=== PATIENT | male | born 1965 | race Caucasian/White ===

== ENCOUNTER 2018-11-19 08:44 | Inpatient (IN) | payer OTHER ==
[~2018-11-19] VITALS: Ht 175.3 cm; Wt 86.3 kg
[2018-11-19] MEDS ORDERED: SOD CHLORIDE 0.9% 1,000 ML IV STA ×2 (08:55→10:10)
[2018-11-19] MEDS ORDERED: HYDROmorphONE 2 MG/ML SYG IV ONE (09:00)
[2018-11-19] MEDS ORDERED: ONDANSETRON 4 MG INJ IV ONE (09:00)
--- NOTE | 2018-11-19 09:04 | ERD ---
ER Documentation Chief Complaint Chief Complaint fell from a ladder 8ft high.low back pain.hit back of the head.KO x 30 sec HPI This is a 53-year-old male no past medical history that presents to the emergency department brought in by EMS after he fell 10 feet from a ladder. The patient stated he lost his balance and fell backwards onto cement. The patient hit his head and he had a loss of consciousness for roughly 30 seconds. He is complaining of a headache. He denies any neck pain. He is complaining of severe pain in his left hip and back. He states the pain is 10 out of 10 in intensity. He was unable to ambulate after the fall due to the pain in his back. He denies any numbness or tingling of his upper or lower extremities. He is not on anticoagulants. ROS All systems reviewed and are negative except as per history of present illness. Allergies Allergies: Coded Allergies: No Known Allergy (Unverified , 11/19/18) Physical Exam Vitals Vital Signs Date Temp Pulse Resp B/P (MAP) Pulse Ox O2 O2 Flow FiO2 Time Delivery Rate 11/19/18 98.1 78 18 138/101 98 08:52 (113) Physical Exam Constitutional:Well-developed. Well-nourished. HEENT:Normocephalic. Atraumatic with no nasal septal hematoma. No hemotympanum..Pupils were equal round reactive to light. Moist mucous membranes.No tonsillar exudates. Neck: No nuchal rigidity. No lymphadenopathy. Posterior cervical spine tenderness over C3-C4 with no step-offs. Respiratory: Not using accessory muscles of respiration.Lungs were clear to auscultation bilaterally. No rhonchi. No rales. No wheezing. Cardiovascular: Regular rate regular rhythm.No murmurs. No rubs were appreciated.S1, S2 normal. Distal pulses are palpable 2+ bilaterally. GI: Abdomen was soft. Nontender. Non Distended. No pulsatile abdominal masses or bruits. No rebound. No guarding. Bowel sounds were present and normal. No ecchymosis of the abdomen or flank region. Tenderness of the left flank region. Muscle skeletal: Patient unable to lift the left lower extremity against gravity as this exacerbated pain. Lower extremities are of equal length and symmetrical no internal or external rotation. Tenderness over L4-L5 with no step-offs. No tenderness with palpation percussion over the thoracic spinous processes. Normal muscle tone.No assymetrical calf tenderness or swelling. Rectal: No gross blood. Normal sphincter tone. Skin: No petechia, no purpura. No lesions on the palms or the soles of the feet. No maculopapular rash. NEURO: Patient was alert, awake, orientated x3.No facial droop. Gait unobserved as patient was in too much discomfort to ambulate.Speech had regular rate and rhythm. No focal neurological deficits. Distal reflexes including the knee and ankle are intact bilaterally Result Diagram: 11/19/1814 11/19/18913 Results 24 hrs Laboratory Tests Test 11/19/18 09:14 White Blood Count 10.1 10^3/ul Red Blood Count 4.40 10^6/ul Hemoglobin 13.5 g/dl Hematocrit 41.1 % Mean Corpuscular Volume 93.4 fl Mean Corpuscular Hemoglobin 30.7 pg Mean Corpuscular Hemoglobin Concent 32.8 g/dl Red Cell Distribution Width 12.0 % Platelet Count 283 10^3/UL Mean Platelet Volume 10.8 fl Immature Granulocytes % 1.300 % Neutrophils % 70.8 % Lymphocytes % 23.3 % Monocytes % 3.9 % Eosinophils % 0.3 % Basophils % 0.4 % Nucleated Red Blood Cells % 0.0 /100WBC Immature Granulocytes # 0.130 10^3/ul Neutrophils # 7.2 10^3/ul Lymphocytes # 2.4 10^3/ul Monocytes # 0.4 10^3/ul Eosinophils # 0.0 10^3/ul Basophils # 0.0 10^3/ul Nucleated Red Blood Cells # 0.0 10^3/ul Prothrombin Time 11.7 Sec Prothrombin Time Ratio 0.9 INR International Normalized Ratio 0.85 Activated Partial Thromboplast Time 24.7 Sec Urine Color YELLOW Urine Clarity CLEAR Urine pH 5.0 Urine Specific [place] 1.060 Urine Ketones NEGATIVE mg/dL Urine Nitrite NEGATIVE mg/dL Urine Bilirubin NEGATIVE mg/dL Urine Urobilinogen NEGATIVE mg/dL Urine Leukocyte Esterase NEGATIVE Shravan/ul Urine Microscopic RBC 2 /HPF Urine Microscopic WBC 2 /HPF Urine Hemoglobin 2+ mg/dL Urine Glucose NEGATIVE mg/dL Urine Total Protein NEGATIVE mg/dl Sodium Level 144 mmol/L Potassium Level 4.1 mmol/L Chloride Level 110 mmol/L Carbon Dioxide Level 25 mmol/L Anion Gap 9 Blood Urea Nitrogen 18 mg/dl Creatinine 0.98 mg/dl Est Glomerular Filtrat Rate mL/min > 60 mL/min Glucose Level 158 mg/dl Calcium Level 9.8 mg/dl Total Bilirubin 0.4 mg/dl Direct Bilirubin 0.00 mg/dl Indirect Bilirubin 0.4 mg/dl Aspartate Amino Transf (AST/SGOT) 48 IU/L Alanine Aminotransferase (ALT/SGPT) 28 IU/L Alkaline Phosphatase 66 IU/L Creatine Kinase 207 IU/L Creatine Kinase Index 1.0 Creatinine Kinase MB (Mass) 2.14 ng/ml Troponin I < 0.012 ng/ml Total Protein 7.7 g/dl Albumin 4.4 g/dl Globulin 3.30 g/dl Albumin/Globulin Ratio 1.33 Amylase Level 121 U/L Lipase 376 U/L Current Medications Medications Dose Sig/Sabino Start Time Status Last (Trade) Ordered Route PRN Stop Time Admin Dose Reason Admin Sodium 1,000 ml @ Q1H STAT 11/19/18 DC 11/19/18 Chloride 1,000 mls/hr IV 08:55 09:20 11/19/18 09:54 1 mg ONCE ONCE 11/19/18 DC 11/19/18 Hydromorphone IV 09:00 09:05 HCl 11/19/18 09:01 (Dilaudid) Ondansetron 4 mg ONCE ONCE 11/19/18 DC 11/19/18 HCl (Zofran IV 09:00 09:05 Inj) 11/19/18 09:01 IV Flush 10 ml STK-MED 11/19/18 DC 11/19/18 (NS 10 ml) ONCE .ROUTE 09:18 09:53 11/19/18 09:19 Sodium 100 ml @ ud STK-MED 11/19/18 DC 11/19/18 Chloride ONCE .ROUTE 09:18 09:53 11/19/18 09:19 Iodixanol 100 ml STK-MED 11/19/18 DC 11/19/18 (Visipaque ONCE .ROUTE 09:18 09:54 Locm) 11/19/18 09:19 Sodium 1,000 ml @ Q1H STAT 11/19/18 DC 11/19/18 Chloride 1,000 mls/hr IV 10:10 10:43 11/19/18 11:09 1 mg ONCE STAT 11/19/18 DC 11/19/18 Hydromorphone IV 10:10 10:43 HCl 11/19/18 10:11 (Dilaudid) Ondansetron 4 mg ONCE STAT 11/19/18 DC 11/19/18 HCl (Zofran IV 10:10 10:43 Inj) 11/19/18 10:11 10 mg ONCE ONCE 11/19/18 DC 11/19/18 Metoclopramid IV 12:00 12:00 e HCl 11/19/18 12:01 (Reglan) Famotidine 20 mg ONCE ONCE 11/19/18 DC 11/19/18 (Pepcid Iv) IV 12:00 12:00 11/19/18 12:01 Ondansetron 4 mg ER BRIDGE 11/19/18 HCl (Zofran PRN IV 12:00 Inj) NAUSEA/VOMITI 11/20/18 11:59 NG 650 mg ER BRIDGE 11/19/18 Acetaminophen PRN PO 12:00 (Tylenol .MILD PAIN 11/20/18 11:59 Tab) 1-3 OR TEMP IV Flush 3 ml PER 11/19/18 (NS 3 ml) PROTOCOL IV 13:00 Ondansetron 4 mg Q6H PRN 11/19/18 HCl (Zofran IV 13:00 Inj) NAUSEA/VOMITI NG 650 mg Q6H PRN 11/19/18 Acetaminophen PO .PAIN 1-3 13:00 (Tylenol OR TEMP Tab) 1 tab Q6H PRN 11/19/18 Acetaminophen PO .MOD PAIN 13:00 / 4-6 Hydrocodone Bitart ([place] (5/325)) Morphine 2 mg Q4H PRN 11/19/18 Sulfate IV .SEVERE 13:00 (morphine) PAIN 7-10 Docusate 100 mg Q12H PRN 11/19/18 Sodium PO 13:00 (Colace) .CONSTIPATION Magnesium 30 ml DAILY PRN 11/19/18 Hydroxide PO 13:00 (Milk Of Mag) .CONSTIPATION Famotidine 20 mg Q12 IV 11/19/18 (Pepcid Iv) 21:00 Sodium 1,000 ml @ [id number] IV 11/19/18 Chloride 75 mls/hr 12:43 Lorazepam 0.5 mg Q6H PRN 11/19/18 (Ativan) IV ANXIETY 13:00 Albuterol/ 3 ml Q4H RESP 11/19/18 Ipratropium THERAPY PRN 13:00 (Duoneb) HHN SHORTNESS OF BREATH Hydralazine 10 mg Q6H PRN 11/19/18 HCl IV ELEVATED 13:00 (Apresoline) BLOOD PRESSURE 1 tab Q5M PRN 11/19/18 Nitroglycerin SL ANGINA 13:00 (Nitroglyceri n (Sl Tab) 0.4 Mg) Procedures/MDM This is a 53-year-old male that came in as a trauma patient. The patient was immediately placed on monitoring coordinator continuous pulse oximetry and 2 large-bore IV catheters were obtained and the patient was given IV Dilaudid for analgesia control. An immediate bedside fast ultrasound was performed by myself and found to be normal. The patient was placed in C-spine precaution. The patient was logrolled using C-spine immobilization. 12 Lead EKG tracing ordered and reviewed by myself showed: Normal sinus rhythm of 70 bpm and no arrhythmia. NJ interval normal. QRS duration normal. No ST segment elevation No ST segment depression. No changes consistent with acute ischemia. I obtained a chest radiograph and there is no pneumothorax or rib fractures however the patient was now complaining of severe bilateral chest wall tenderness with no crepitus no ecchymosis no flail chest but I did feel is necessary to obtain a CT scan of the patient's chest and abdomen. CT scan of the head and neck showed no intracerebral hemorrhage mass-effect or midline shift. No cervical spinal fractures. CT scan of the abdomen and pelvis indicated there is fractures involving the left-sided transverse process of L1 L4 with mild displacement of these fractures most pronounced at L4. I spoke with the neurosurgeon Dr. Parnell. He kindly see who be consulted on the case. The patient at this time had no neurovascular compromise station. He was given analgesic control of Dilaudid. The patient however was unable to ambulate due to the severity of the pain. Therefore he required admission to the hospital will be seen by the hospitalist Dr. Shen. Critical Care: Time: 90 minutes Treatments/Evaluations: Close monitoring and treatment of unstable vital signs, cardiorespiratory, and neurologic status, while maintaining tight balance of fluid, respiratory, and cardiac interventions. Time does not include performing any of the above billable procedures. Departure Diagnosis: Primary Impression: Fall with significant injury Encounter type: initial encounter Qualified Codes: W19.XXXA - Unspecified fall, initial encounter Additional Impressions: Closed head injury Encounter type: initial encounter Qualified Codes: S09.90XA - Unspecified injury of head, initial encounter Fx lumbar vertebra-closed Encounter type: initial encounter Lumbar vertebra fracture level: unspecified lumbar vertebra Fracture morphology: unspecified fracture m orphology Qualified Codes: S32.009A - Unspecified fracture of unspecified lumbar vertebra, initial encounter for closed fracture Condition: Serious BENTLEY MERCADO MD Nov 19, 2018 09:04
[2018-11-19] MEDS ORDERED: IODIXANOL LOCM 100 ML BTL ONE (09:18)
[2018-11-19] MEDS ORDERED: SOD CHLORIDE 0.9% 100 ML ONE (09:18)
[2018-11-19] MEDS ORDERED: ONDANSETRON 4 MG INJ IV STA (10:10)
[2018-11-19] MEDS ORDERED: HYDROmorphONE 1 MG/ML SYG IV STA (10:10)
[2018-11-19] MEDS ORDERED: FAMOTIDINE 20 MG INJ IV ONE (12:00)
[2018-11-19] MEDS ORDERED: METOCLOPRAMIDE 10 MG INJ IV ONE (12:00)
[2018-11-19] MEDS ORDERED: ONDANSETRON 4 MG INJ IV PRN (12:00)
[2018-11-19] MEDS ORDERED: ACETAMINOPHEN 325 MG TAB PO PRN ×2 (12:00→13:00)
[2018-11-19] MEDS ORDERED: MAGNESIUM HYDROXIDE 30ML CUP PO PRN (13:00)
[2018-11-19] MEDS ORDERED: hydrALAzine 20 MG INJ IV PRN (13:00)
[2018-11-19] MEDS ORDERED: LORAZEPAM 2 MG INJ IV PRN (13:00)
[2018-11-19] MEDS ORDERED: NACL 0.9% 3 ML SYG IV SCH (13:00)
[2018-11-19] MEDS ORDERED: DOCUSATE SODIUM 100 MG CAP PO PRN (13:00)
[2018-11-19] MEDS ORDERED: HYDROCODONE/APAP (5/325) TAB PO PRN (13:00)
[2018-11-19] MEDS ORDERED: morphine 2 MG INJ IV PRN (13:00)
[2018-11-19] MEDS ORDERED: ALBUTEROL/IPRATROPIUM (NEB) 3 ML AMP HHN PRN (13:00)
[2018-11-19] MEDS ORDERED: NITROGLYCERIN (SL) 0.4 MG TAB SL PRN (13:00)
[2018-11-19] MEDS: SOD CHLORIDE 0.45% 1,000 ML IV SCH (15:43)
--- NOTE | 2018-11-19 16:42 | HP ---
DATE OF ADMISSION: 11/19/2018 IDENTIFICATION: This is a 53-year-old male. CHIEF COMPLAINT: Status post fall, low back pain. HISTORY OF PRESENT ILLNESS: A 53-year-old male with no significant past medical history who came in to the ER after falling off a ladder. This occurred earlier today. He fell approximately 10 feet. The patient hit his head as well. Apparently, he was out for about 1 minute. Afterwards, he was com plaining of headache and left armpit pain and some dizziness symptoms and also some low back pain. H e was able to move his extremities, but unstable to ambulate and 911 was called. He was brought into the ER. He still complains of dizziness symptoms, but no upper or lower GI bleeding, no diarrhea or constipation, no nausea or vomiting, no fever or chills. When he arrived, he had imaging study perf ormed, specifically CT scan that showed fractures involving left-sided transverse process of L1 L4 rosenbaum bcutaneous contusion seen superficial to the area of injury and mild left paraspinal muscular edema. No other visible and posttraumatic sequela was seen involving the osseous structures. A call was randy wheeler out to the neurosurgeon to come evaluate the patient. The patient also denies any loss of bowel o r bladder function, no numbness in his lower extremities. He does have limited range of motion secon alexis to pain in his lower extremities. He also had C-spine CT scan that shows no acute fractures or traumatic subluxations, but there is multilevel broad based bulges at C2 to C3 through C6 and C7, als o multilevel neural foraminal stenosis at C3 to C4 and C5 to C6 levels. PAST MEDICAL HISTORY: As above. ALLERGIES: NO KNOWN DRUG ALLERGIES. HOME MEDICATIONS: None. PAST SURGICAL HISTORY: He had hernia surgery in the past. SOCIAL HISTORY: Occasional alcohol use. Denied IV drug abuse. No smoking history. PHYSICAL EXAMINATION: VITAL SIGNS: Today, T-max 98.1, pulse 78, respirations 19, blood pressure 138/101, satting at 98% on room air. GENERAL: The patient is lying in bed in mild to moderate distress but answering questions appropriat leland, alert. HEENT: Pupils are equal, round, react to light. Extraocular muscles are intact. NECK: Supple. Some positive C-spine tenderness on palpation. LUNGS: Clear to auscultation bilaterally. CARDIOVASCULAR: S1, S2 heard. No rubs or gallops. ABDOMEN: Soft, nontender, nondistended. Normal bowel sounds. No rebound or guarding. There is lion e mild left flank tenderness to palpation. MUSCULOSKELETAL: Unable to do left lower extremity bilaterally against gravity secondary to pain. T here is some tenderness to palpation in the spine area; otherwise no asymmetry or numbness noted. NEUROLOGIC: No focal deficits. LABORATORIES: CBC is completely normal. Comprehensive metabolic panel is normal, although CK levels are little high at 207. Lipase is a little high at 376. UA is negative leukocyte esterase, negativ e nitrites. Coags are normal. DIAGNOSTIC DATA: We mentioned imaging studies. ASSESSMENT AND PLAN: A 53-year-old male status post fall off ladder with L1 to L4 transverse process fractures. 1. Status post fall with L-spine fracture. Admit the patient. Do neuro checks every 4 hours. Get a neurosurgery consult. Order PT. Give pain control medications. OT consult. Check TSH, A1c, lipi d panel. 2. Gastrointestinal prophylaxis, H2 gardenia. 3. Deep venous thrombosis prophylaxis, SCDs. Dictated By: ZACHARY TIPTON/JUAN MANUEL Conf#: [id number] DID#: [id number] CC: WINNIE WILKES MD;*EndCC*
[2018-11-19 16:59] VITALS: PULSE 93; Ht 175.3 cm; Wt 86.3 kg
[2018-11-19 19:57] VITALS: BP 167/83; PULSE 100; RESP 18
[2018-11-19 20:04] VITALS: PULSE 67
[2018-11-20] VITALS (12 sets, daily range): BP systolic 93–145; BP diastolic 57–80; PULSE 60–89; RESP 18
--- NOTE | 2018-11-20 00:37 | CONS ---
DATE OF ADMISSION: 11/19/2018 DATE OF CONSULTATION: 11/19/2018 REQUESTING PHYSICIAN: Dr. Bentley Mercado. INDICATION FOR CONSULTATION: Transverse process fractures. HISTORY OF PRESENT ILLNESS: The patient is a 53-year-old right-handed male who was brought to the Em ergency Department after a 10-foot fall from a ladder. The patient fell, hit his head and lost consc iousness for approximately 30 seconds. The patient apparently simply lost his balance and slipped, f alling backwards landing on his left side on the cement. The patient initially complained of headach e and still complains of headache in the back of his head. He denies any nausea, vomiting, numbness, tingling or weakness. He reports some left-sided chest wall pain as well as some left-sided low rafael k and hip pain. The patient's pain was initially 10/10, but currently patient states his pain is muc h less severe. PAST MEDICAL HISTORY: The patient denies any medical problems. ALLERGIES: NO KNOWN DRUG ALLERGIES. SURGICAL HISTORY: The patient reports he has had some surgeries, but would not specify the actual pr ocedures. FAMILY HISTORY: The patient denies any history of inherited bleeding disorders. SOCIAL HISTORY: The patient is . The patient is an occasional drinker, nonsmoker, denies any IV drug abuse. REVIEW OF SYSTEMS: A 12-point review of systems was performed. Pertinent positives and negatives ar e listed in the history of present illness and below. CONSTITUTIONAL: Denies any fevers or chills. HEMATOLOGIC: No history of easy bruising or bleeding. PHYSICAL EXAMINATION: VITAL SIGNS: Temperature 98.1, pulse 93, respirations 16, blood pressure 119/75, saturating 99% on r oom air. GENERAL: The patient is well-developed, well-nourished male, lying in the hospital bed in no acute d istress. HEAD AND NECK: He is normocephalic. He has a cephalohematoma on his left occiput. He has no Riggs sign, periorbital ecchymosis, otorrhea or rhinorrhea. The patient's neck is supple, but he reports some mid cervical paraspinal tenderness. No midline tenderness to palpation. He does have Spurling nor Lhermitte sign. CARDIAC: Regular rate and rhythm. LUNGS: Clear to auscultation. ABDOMEN: Nontender, nondistended, soft. EXTREMITIES: No clubbing, cyanosis or edema. CHEST AND BACK: The patient does report some left chest wall tenderness as well as some tenderness i n his lower back paraspinal muscles. MUSCULOSKELETAL: He has normal tone and bulk. His motor exam is 5/5 bilaterally in all muscle group s of the upper and lower extremities. NEUROLOGIC: The patient is awake, alert and oriented x3, fluent speech, follows commands readily tyron ropriately. He has normal attention and concentration. He has intact remote, immediate and recent m chiara. Cranial nerves II through XII are serially tested and intact. He does not have a pronator dr ift. He has no ataxia or dysmetria with [id number] or [id number] testing. Gait not assess ed secondary to condition. Deep tendon reflexes are 1+ in his upper and lower extremities at biceps, triceps, ankle and patella. He has no clonus, Babinski or Keysha sign. Grossly intact sensation. LABORATORIES: The patient's white count 10.1, hemoglobin 14.5, platelets 283. Coagulation profile w as normal with a PT of 1, INR of 0.93, and a PTT of 25.3. Chemistry is sodium 144, BUN and creatinin e 18 and 0.98, with a glucose 158. REVIEW OF RADIOGRAPHIC RESULTS: I reviewed the patient's CT of the head, which was normal, with no e vidence of acute bleed or fracture. CT of cervical spine showed no evidence of fracture or subluxati on. There is some mild degenerative disk disease and some straightening of her cervical lordosis wit h some neural foraminal stenosis, but no significant central canal stenosis. The patient had a CT of the chest, abdomen and pelvis. I reviewed this study as well as radiologist's results. There is so me left transverse process of fractures that are minimally displaced from L1 through L4. The patient also had an MRI which showed no evidence of ligamentous injury, acute disk bulge, epidural hematoma or edema in the bone. The fractures were not visible on the MRI. ASSESSMENT: A 53-year-old male status post fall with: 1. Multiple transverse process fractures. 2. Concussion. PLAN: I discussed patient's signs, symptoms, physical examination and radiographic findings with him and his family. Firstly, I explained the patient's TP fractures are not surgical. I explained that they may be painful, but the pain will resolve. I did not see evidence of instability. The patient does not have any neurologic issues associated with this. I simply recommend a brace or corset for comfort and muscle relaxants and pain medications, specifically anti-inflammatories to help for pain relief. However, I do not think that this will progress to require any type of instability or requir e any type of surgical intervention. The patient also had a concussion. I discussed postconcussive symptoms. The patient does have some dizziness when he turns his head or sits up. I explained this is likely secondary to his postconcussive symptoms. I discussed the natural history of this ____ of postconcussive symptoms, and recommended behavior to help allow for recovery. The patient otherwise is free to get up and ambulate with physical therapy and the patient can follow up as an outpatient. Dictated By: WINNIE WILKES MD, LG/JUAN MANUEL Conf#: [id number] DID#: [id number] CC: BENTLEY MERCADO MD; JACKLYN CAMARA MD;*End*
[2018-11-20] MEDS: SOD CHLORIDE 0.45% 1,000 ML IV SCH ×2 (03:53→15:31)
[2018-11-20] MEDS: FAMOTIDINE 20 MG INJ IV SCH ×2 (03:53→08:01)
--- NOTE | 2018-11-20 08:13 | PN ---
Date/Time of Note Date/Time of Note DATE: 11/20/18 TIME: 08:12 Assessment/Plan VTE Prophylaxis Risk score (from Ns)>0 risk: 2 SCD applied (from Ns): Yes Pharmacological prophylaxis: other Lines/Catheters IV Catheter Type (from Nrsg): Peripheral IV Assessment/Plan Hospital Course S: Patient seen by neurosurgery team yesterday. Waiting to be seen by physical therapy team. Still having pain symptoms that is relieved by morphine. O: VS- see below PHYSICAL EXAMINATION: GENERAL: lying in bed in mild to moderate distress but answering questions appropriately, alert. HEENT: Pupils are equal, round, react to light. Extraocular muscles are intact. NECK: Supple. Some positive C-spine tenderness on palpation. LUNGS: Clear to auscultation bilaterally. CARDIOVASCULAR: S1, S2 heard. No rubs or gallops. ABDOMEN: Soft, nontender, nondistended. Normal bowel sounds. No rebound or guarding. There is some mild left flank tenderness to palpation. MUSCULOSKELETAL: Unable to do left lower extremity bilaterally against gravity secondary to pain. There is some tenderness to palpation in the spine area; otherwise no asymmetry or numbness noted. NEUROLOGIC: No focal deficits. ASSESSMENT AND PLAN: 53-year-old male status post fall off ladder with L1 to L4 transverse process fractures. 1. Status post fall with L-spine fracture- pt see by NSS. - continue neuro checks every 4 hours. - f/u rec's from neurosurgery consult-at this time they are recommending brace placement, ambulation with physical therapy, and muscle relaxant - Per neurosurgery patient will also need brace -hopefully physical therapy can order this -For patient's concussion symptoms, monitor for now, careful physical therapy, monitors dizziness symptom 2. Gastrointestinal prophylaxis, H2 gardenia. 3. Deep venous thrombosis prophylaxis, SCDs. Result Diagram: 11/20/18 0513 11/20/18 0513 Results 24hrs Laboratory Tests Test 11/19/18 09:14 11/19/18 12:43 11/19/18 18:13 11/20/18 05:10 White Blood Count 10.1 Red Blood Count 4.40 L Hemoglobin 13.5 L Hematocrit 41.1 L Mean Corpuscular 93.4 Volume Mean Corpuscular 30.7 Hemoglobin Mean Corpuscular 32.8 Hemoglobin Concent Red Cell 12.0 Distribution Width Platelet Count 283 Mean Platelet Volume 10.8 H Immature 1.300 H Granulocytes % Neutrophils % 70.8 Lymphocytes % 23.3 Monocytes % 3.9 Eosinophils % 0.3 Basophils % 0.4 Nucleated Red Blood 0.0 Cells % Immature 0.130 H Granulocytes # Neutrophils # 7.2 Lymphocytes # 2.4 Monocytes # 0.4 Eosinophils # 0.0 Basophils # 0.0 Nucleated Red Blood 0.0 Cells # Prothrombin Time 11.7 L 12.6 Prothrombin Time 0.9 1.0 Ratio INR International 0.85 0.93 Normalized Ratio Activated 24.7 25.3 Partial Thromboplast Time Urine Color YELLOW Urine Clarity CLEAR Urine pH 5.0 Urine Specific 1.060 H [place] Urine Ketones NEGATIVE Urine Nitrite NEGATIVE Urine Bilirubin NEGATIVE Urine Urobilinogen NEGATIVE Urine Leukocyte NEGATIVE Esterase Urine Microscopic 2 RBC Urine Microscopic 2 WBC Urine Hemoglobin 2+ H Urine Glucose NEGATIVE Urine Total Protein NEGATIVE Sodium Level 144 Potassium Level 4.1 Chloride Level 110 Carbon Dioxide Level 25 Anion Gap 9 Blood Urea Nitrogen 18 Creatinine 0.98 Est Glomerular > 60 Filtrat Rate mL/min Glucose Level 158 Calcium Level 9.8 Total Bilirubin 0.4 Direct Bilirubin 0.00 Indirect Bilirubin 0.4 Aspartate Amino 48 H Transf (AST/SGOT) Alanine 28 Aminotransferase (AL T/SGPT) Alkaline Phosphatase 66 Creatine Kinase 207 H Creatine Kinase 1.0 Index Creatinine Kinase MB 2.14 (Mass) Troponin I < 0.012 Total Protein 7.7 Albumin 4.4 Globulin 3.30 H Albumin/Globulin 1.33 Ratio Amylase Level 121 Lipase 376 H Free Thyroxine 1.08 Hemoglobin A1c 5.6 Test 11/20/18 05:13 White Blood Count 8.8 Red Blood Count 3.83 L Hemoglobin 11.6 L Hematocrit 35.5 L Mean Corpuscular 92.7 Volume Mean Corpuscular 30.3 Hemoglobin Mean Corpuscular 32.7 Hemoglobin Concent Red Cell 12.2 Distribution Width Platelet Count 225 # Mean Platelet Volume 10.6 H Immature 0.300 Granulocytes % Neutrophils % 71.3 Lymphocytes % 19.4 Monocytes % 8.4 Eosinophils % 0.3 Basophils % 0.3 Nucleated Red Blood 0.0 Cells % Immature 0.030 Granulocytes # Neutrophils # 6.3 Lymphocytes # 1.7 Monocytes # 0.7 Eosinophils # 0.0 Basophils # 0.0 Nucleated Red Blood 0.0 Cells # Sodium Level 140 Potassium Level 3.8 Chloride Level 108 Carbon Dioxide Level 26 Anion Gap 6 Blood Urea Nitrogen 11 Creatinine 0.78 Est Glomerular > 60 Filtrat Rate mL/min Glucose Level 107 # Calcium Level 8.6 Phosphorus Level 3.4 Magnesium Level 2.0 Triglycerides Level 70 Cholesterol Level 152 LDL Cholesterol, 94 Calculated HDL Cholesterol 44 Cholesterol/HDL 3.4 Ratio Thyroid Stimulating 0.465 Hormone (TSH) Exam/Review of Systems Exam Vitals Vital Signs Date Temp Pulse Resp B/P (MAP) Pulse Ox O2 O2 Flow FiO2 Time Delivery Rate 11/20/18 60 08:06 11/20/18 97.5 18 107/68 98 Room Air 07:28 (81) Intake and Output 11/19/18 11/19/18 11/20/18 1515:00 23:00 07:00 IntakeIntake Total 0 ml 2000 ml OutputOutput Total 1100 ml BalanceBalance 0 ml 900 ml Results Results 24hrs Laboratory Tests Test 11/19/18 09:14 11/19/18 12:43 11/19/18 18:13 11/20/18 05:10 White Blood Count 10.1 Red Blood Count 4.40 L Hemoglobin 13.5 L Hematocrit 41.1 L Mean Corpuscular 93.4 Volume Mean Corpuscular 30.7 Hemoglobin Mean Corpuscular 32.8 Hemoglobin Concent Red Cell 12.0 Distribution Width Platelet Count 283 Mean Platelet Volume 10.8 H Immature 1.300 H Granulocytes % Neutrophils % 70.8 Lymphocytes % 23.3 Monocytes % 3.9 Eosinophils % 0.3 Basophils % 0.4 Nucleated Red Blood 0.0 Cells % Immature 0.130 H Granulocytes # Neutrophils # 7.2 Lymphocytes # 2.4 Monocytes # 0.4 Eosinophils # 0.0 Basophils # 0.0 Nucleated Red Blood 0.0 Cells # Prothrombin Time 11.7 L 12.6 Prothrombin Time 0.9 1.0 Ratio INR International 0.85 0.93 Normalized Ratio Activated 24.7 25.3 Partial Thromboplast Time Urine Color YELLOW Urine Clarity CLEAR Urine pH 5.0 Urine Specific 1.060 H [place] Urine Ketones NEGATIVE Urine Nitrite NEGATIVE Urine Bilirubin NEGATIVE Urine Urobilinogen NEGATIVE Urine Leukocyte NEGATIVE Esterase Urine Microscopic 2 RBC Urine Microscopic 2 WBC Urine Hemoglobin 2+ H Urine Glucose NEGATIVE Urine Total Protein NEGATIVE Sodium Level 144 Potassium Level 4.1 Chloride Level 110 Carbon Dioxide Level 25 Anion Gap 9 Blood Urea Nitrogen 18 Creatinine 0.98 Est Glomerular > 60 Filtrat Rate mL/min Glucose Level 158 Calcium Level 9.8 Total Bilirubin 0.4 Direct Bilirubin 0.00 Indirect Bilirubin 0.4 Aspartate Amino 48 H Transf (AST/SGOT) Alanine 28 Aminotransferase (AL T/SGPT) Alkaline Phosphatase 66 Creatine Kinase 207 H Creatine Kinase 1.0 Index Creatinine Kinase MB 2.14 (Mass) Troponin I < 0.012 Total Protein 7.7 Albumin 4.4 Globulin 3.30 H Albumin/Globulin 1.33 Ratio Amylase Level 121 Lipase 376 H Free Thyroxine 1.08 Hemoglobin A1c 5.6 Test 11/20/18 05:13 White Blood Count 8.8 Red Blood Count 3.83 L Hemoglobin 11.6 L Hematocrit 35.5 L Mean Corpuscular 92.7 Volume Mean Corpuscular 30.3 Hemoglobin Mean Corpuscular 32.7 Hemoglobin Concent Red Cell 12.2 Distribution Width Platelet Count 225 # Mean Platelet Volume 10.6 H Immature 0.300 Granulocytes % Neutrophils % 71.3 Lymphocytes % 19.4 Monocytes % 8.4 Eosinophils % 0.3 Basophils % 0.3 Nucleated Red Blood 0.0 Cells % Immature 0.030 Granulocytes # Neutrophils # 6.3 Lymphocytes # 1.7 Monocytes # 0.7 Eosinophils # 0.0 Basophils # 0.0 Nucleated Red Blood 0.0 Cells # Sodium Level 140 Potassium Level 3.8 Chloride Level 108 Carbon Dioxide Level 26 Anion Gap 6 Blood Urea Nitrogen 11 Creatinine 0.78 Est Glomerular > 60 Filtrat Rate mL/min Glucose Level 107 # Calcium Level 8.6 Phosphorus Level 3.4 Magnesium Level 2.0 Triglycerides Level 70 Cholesterol Level 152 LDL Cholesterol, 94 Calculated HDL Cholesterol 44 Cholesterol/HDL 3.4 Ratio Thyroid Stimulating 0.465 Hormone (TSH) Medications Medication Current Medications Ondansetron HCl (Zofran Inj) 4 mg ER BRIDGE PRN IV NAUSEA/VOMITING; Start 11/19/18 at 12:00; Stop 11/20/18 at 11:59 Acetaminophen (Tylenol Tab) 650 mg ER BRIDGE PRN PO .MILD PAIN 1-3 OR TEMP; Start 11/19/18 at 12:00; Stop 11/20/18 at 11:59 IV Flush (NS 3 ml) 3 ml PER PROTOCOL IV ; Start 11/19/18 at 13:00 Ondansetron HCl (Zofran Inj) 4 mg Q6H PRN IV NAUSEA/VOMITING; Start 11/19/18 at 13:00 Acetaminophen (Tylenol Tab) 650 mg Q6H PRN PO .PAIN 1-3 OR TEMP; Start 11/19/18 at 13:00 Acetaminophen/ Hydrocodone Bitart ([place] (5/325)) 1 tab Q6H PRN PO .MOD PAIN 4- 6; Start 11/19/18 at 13:00 Morphine Sulfate (morphine) 2 mg Q4H PRN IV .SEVERE PAIN 7-10 Last administered on 11/19/18at 18:29; Admin Dose 2 MG; Start 11/19/18 at 13:00 Docusate Sodium (Colace) 100 mg Q12H PRN PO .CONSTIPATION; Start 11/19/18 at 13:00 Magnesium Hydroxide (Milk Of Mag) 30 ml DAILY PRN PO .CONSTIPATION; Start 11/19/18 at 13:00 Famotidine (Pepcid Iv) 20 mg Q12 IV Last administered on 11/20/18at 08:01; Admin Dose 20 MG; Start 11/19/18 at 21:00 Sodium Chloride 1,000 ml @ 75 mls/hr [id number] IV Last administered on 11/20/18at 03:53; Admin Dose 75 MLS/HR; Start 11/19/18 at 12:43 Lorazepam (Ativan) 0.5 mg Q6H PRN IV ANXIETY; Start 11/19/18 at 13:00 Albuterol/ Ipratropium (Duoneb) 3 ml Q4H RESP THERAPY PRN HHN SHORTNESS OF BR EATH; Start 11/19/18 at 13:00 Hydralazine HCl (Apresoline) 10 mg Q6H PRN IV ELEVATED BLOOD PRESSURE; Start 11/19/18 at 13:00 Nitroglycerin (Nitroglycerin (Sl Tab) 0.4 Mg) 1 tab Q5M PRN SL ANGINA; Start 11/19/18 at 13:00 ZACHARY MILLARD Nov 20, 2018 08:13
[2018-11-20] MEDS ORDERED: HYDROmorphONE 2 MG TAB PO PRN (10:00)
[2018-11-20] MEDS: BACLOFEN 10 MG TAB PO SCH ×3 (11:10→21:18)
[2018-11-20] MEDS ORDERED: HYDROCODONE/APAP (5/325) TAB PO PRN (13:00)
[2018-11-20] MEDS: ONDANSETRON 4 MG INJ IV PRN (20:33)
[2018-11-20] MEDS: FAMOTIDINE 20 MG TAB PO SCH (21:18)
[2018-11-21] VITALS (10 sets, daily range): BP systolic 90–116; BP diastolic 51–73; PULSE 58–69; RESP 17–18
[2018-11-21] MEDS: SOD CHLORIDE 0.45% 1,000 ML IV SCH ×2 (04:43→17:33)
[2018-11-21] MEDS: ONDANSETRON 4 MG INJ IV PRN (08:21)
[2018-11-21] MEDS: FAMOTIDINE 20 MG TAB PO SCH (09:12)
[2018-11-21] MEDS: BACLOFEN 10 MG TAB PO SCH ×2 (09:12→13:14)
--- NOTE | 2018-11-21 11:44 | PN ---
Date/Time of Note Date/Time of Note DATE: 11/21/18 TIME: 11:26 Assessment/Plan VTE Prophylaxis Risk score (from Nsg)>0 risk: 2 SCD applied (from Nsg): Yes Pharmacological prophylaxis: other Lines/Catheters IV Catheter Type (from Nrsg): Peripheral IV Assessment/Plan Hospital Course S: Patient seen by PT, OT, and speech teams yesterday. O: VS- see below PHYSICAL EXAMINATION: GENERAL: lying in bed in mild to moderate distress but answering questions appropriately, alert. HEENT: Pupils are equal, round, react to light. Extraocular muscles are intact. NECK: Supple. Some positive C-spine tenderness on palpation. LUNGS: Clear to auscultation bilaterally. CARDIOVASCULAR: S1, S2 heard. No rubs or gallops. ABDOMEN: Soft, nontender, nondistended. Normal bowel sounds. No rebound or guarding. There is some mild left flank tenderness to palpation. MUSCULOSKELETAL: Unable to do left lower extremity bilaterally against gravity secondary to pain. There is some tenderness to palpation in the spine area; otherwise no asymmetry or numbness noted. NEUROLOGIC: No focal deficits. ASSESSMENT AND PLAN: 53-year-old male status post fall off ladder with L1 to L4 transverse process fractures. 1. Status post fall with L-spine fracture- pt see by NSS. - f/u rec's from neurosurgery consult-at this time they are recommending brace or corset placement, ambulation with physical therapy, and muscle relaxant -we will have this arranged -Continue PT and OT while in-house - For patient's concussion symptoms, monitor for now, careful physical therapy, monitors dizziness symptom 2. Gastrointestinal prophylaxis, H2 gardenia. 3. Deep venous thrombosis prophylaxis, SCDs. Dispo: Likely home in the next 24 hours once patient gets front wheel walker, corset, and brace set up and ordered for home use. Result Diagram: 11/21/1826 11/21/1826 Results 24hrs Laboratory Tests Test 11/21/18 05:26 White Blood Count 7.0 # Red Blood Count 3.83 L Hemoglobin 11.8 L Hematocrit 35.8 L Mean Corpuscular Volume 93.5 Mean Corpuscular Hemoglobin 30.8 Mean Corpuscular Hemoglobin Concent 33.0 Red Cell Distribution Width 12.0 Platelet Count 237 Mean Platelet Volume 11.0 H Immature Granulocytes % 0.300 Neutrophils % 65.6 Lymphocytes % 26.0 Monocytes % 7.1 Eosinophils % 0.7 Basophils % 0.3 Nucleated Red Blood Cells % 0.0 Immature Granulocytes # 0.020 Neutrophils # 4.6 Lymphocytes # 1.8 Monocytes # 0.5 Eosinophils # 0.1 Basophils # 0.0 Nucleated Red Blood Cells # 0.0 Sodium Level 141 Potassium Level 3.7 Chloride Level 107 Carbon Dioxide Level 25 Anion Gap 9 Blood Urea Nitrogen 10 Creatinine 0.80 Est Glomerular Filtrat Rate mL/min > 60 Glucose Level 99 Calcium Level 9.0 Exam/Review of Systems Exam Vitals Vital Signs Date Temp Pulse Resp B/P (MAP) Pulse Ox O2 O2 Flow FiO2 Time Delivery Rate 11/21/18 61 08:16 11/21/18 97.6 17 116/72 96 Room Air 07:57 (87) Intake and Output 11/20/18 11/20/18 11/21/18 1515:00 23:00 07:00 IntakeIntake Total 250 ml 1000 ml 2250 ml OutputOutput Total 300 ml 1000 ml 300 ml BalanceBalance -50 ml 0 ml 1950 ml Results Results 24hrs Laboratory Tests Test 11/21/18 05:26 White Blood Count 7.0 # Red Blood Count 3.83 L Hemoglobin 11.8 L Hematocrit 35.8 L Mean Corpuscular Volume 93.5 Mean Corpuscular Hemoglobin 30.8 Mean Corpuscular Hemoglobin Concent 33.0 Red Cell Distribution Width 12.0 Platelet Count 237 Mean Platelet Volume 11.0 H Immature Granulocytes % 0.300 Neutrophils % 65.6 Lymphocytes % 26.0 Monocytes % 7.1 Eosinophils % 0.7 Basophils % 0.3 Nucleated Red Blood Cells % 0.0 Immature Granulocytes # 0.020 Neutrophils # 4.6 Lymphocytes # 1.8 Monocytes # 0.5 Eosinophils # 0.1 Basophils # 0.0 Nucleated Red Blood Cells # 0.0 Sodium Level 141 Potassium Level 3.7 Chloride Level 107 Carbon Dioxide Level 25 Anion Gap 9 Blood Urea Nitrogen 10 Creatinine 0.80 Est Glomerular Filtrat Rate mL/min > 60 Glucose Level 99 Calcium Level 9.0 Medications Medication Current Medications IV Flush (NS 3 ml) 3 ml PER PROTOCOL IV ; Start 11/19/18 at 13:00 Ondansetron HCl (Zofran Inj) 4 mg Q6H PRN IV NAUSEA/VOMITING Last administered on 11/21/18 08:21; Admin Dose 4 MG; Start 11/19/18 at 13:00 Acetaminophen (Tylenol Tab) 650 mg Q6H PRN PO .PAIN 1-3 OR TEMP; Start 11/19/18 at 13:00 Morphine Sulfate (morphine) 2 mg Q4H PRN IV .SEVERE PAIN 7-10 Last administered on 11/19/18 18:29; Admin Dose 2 MG; Start 11/19/18 at 13:00 Docusate Sodium (Colace) 100 mg Q12H PRN PO .CONSTIPATION; Start 11/19/18 at 13:00 Magnesium Hydroxide (Milk Of Mag) 30 ml DAILY PRN PO .CONSTIPATION; Start 11/19/18 at 13:00 Sodium Chloride 1,000 ml @ 75 mls/hr [id number] IV Last administered on 11/21/18 04:43; Admin Dose 75 MLS/HR; Start 11/19/18 at 12:43 Lorazepam (Ativan) 0.5 mg Q6H PRN IV ANXIETY; Start 11/19/18 at 13:00 Albuterol/ Ipratropium (Duoneb) 3 ml Q4H RESP THERAPY PRN HHN SHORTNESS OF BREATH; Start 11/19/18 at 13:00 Hydralazine HCl (Apresoline) 10 mg Q6H PRN IV ELEVATED BLOOD PRESSURE; Start 11/19/18 at 13:00 Nitroglycerin (Nitroglycerin (Sl Tab) 0.4 Mg) 1 tab Q5M PRN SL ANGINA; Start 11/19/18 at 13:00 Baclofen (Lioresal) 10 mg TID PO Last administered on 11/21/18 09:12; Admin Dose 10 MG; Start 11/20/18 at 10:00 Acetaminophen/ Hydrocodone Bitart ([place] (5/325)) 1 tab Q4H PRN PO .MOD PAIN 4- 6 Last administered on 11/20/18 21:18; Admin Dose 1 TAB; Start 11/20/18 at 13:00 Hydromorphone HCl (Dilaudid) 2 mg Q4H PRN PO SEVERE PAIN LEVEL 7-10; Start 11/20/18 at 10:00 Famotidine (Pepcid) 20 mg Q12 PO Last administered on 11/21/18 09:12; Admin Dose 20 MG; Start 11/20/18 at 21:00 ZACHARY MILLARD Nov 21, 2018 11:36
--- NOTE | 2018-11-21 17:45 | PDOCDIS ---
Discharge Instructions CONDITION [id number] Patient Condition: [id number] Stable HOME CARE INSTRUCTIONS: [id number] Diet Instructions: [id number] Low Fat /Cholesterol ACTIVITY: [id number] Activity Restrictions: [id number] Slowly Increase Activity Rest between Activity Avoid heavy lifting FOLLOW UP/APPOINTMENTS Follow-up Plan Please take your medications as prescribed, see her doctor in the clinic in the next 1 week and wear your brace as prescribed. ZACHARY MILLARD Nov 21, 2018 17:45
[2018-11-21] MEDS ORDERED: BACL10TA PO (17:48)
[2018-11-21] MEDS ORDERED: HYDR2TAB36 PO (17:48)
[2018-11-21] MEDS ORDERED: ONDA4TAB8 PO (17:48)
[2018-11-21] MEDS ORDERED: FAMO20TA18 PO (17:48)
--- NOTE | 2018-11-21 17:58 | DS ---
Date/Time of Note Date/Time of Note DATE: 11/21/18 TIME: 17:54 Discharge Summary Admission/Discharge Info Admit Date/Time Nov 19, 2018 at 11:46 Discharge Date/Time Discharge Diagnosis 1. Status post fall with L-spine fracture- pt see by NSS. - f/u rec's from neurosurgery consult-at this time they are recommending brace or corset placement, ambulation with physical therapy, and muscle relaxant-patient's pain symptoms slowly improving 2. GERD Patient Condition: Stable Procedures A. CT scan abdomen pelvis: IMPRESSION: Fractures are seen involving the left sided transverse processes of L1-L4 with subcutaneous contusion seen superficial to the area of injury in mild left paraspinal muscular edema. No other visible post-traumatic sequelae are seen involving the osseous structures. There is trace fat stranding adjacent to the left upper pole renal cyst which could represent rupture of the cyst without a visible laceration within the left renal parenchyma. Otherwise no evidence of post-traumatic sequelae involving the remaining soft tissue structures of the chest, abdomen, and pelvis. Atherosclerotic disease is present. B. CT scan C-spine: IMPRESSION: 1. No acute fractures or traumatic subluxations 2. Straightening of the normal lumbar lordosis and degenerative enthesopathy C4-C7 3. Multilevel broad-based bulges at the C2-3 through C6-7 levels 4. Multilevel neural foraminal stenosis at the C3-4 and C5-6 levels Hx of Present Illness 53-year-old male with no significant past medical history who came in to the ER after falling off a ladder. This occurred earlier today. He fell approximately 10 feet. The patient hit his head as well. Apparently, he was out for about 1 minute. Afterwards, he was complaining of headache and left armpit pain and some dizziness symptoms and also some low back pain. He was able to move his extremities, but unstable to ambulate and 911 was called. He was brought into the ER. He still complains of dizziness symptoms, but no upper or lower GI bleeding, no diarrhea or constipation, no nausea or vomiting, no fever or chills. When he arrived, he had imaging study performed, specifically CT scan that showed fractures involving left-sided transverse process of L1 L4 subcutan eous contusion seen superficial to the area of injury and mild left paraspinal muscular edema. No other visible and posttraumatic sequela was seen involving the osseous structures. A call was made out to the neurosurgeon to come evaluate the patient. The patient also denies any loss of bowel or bladder function, no numbness in his lower extremities. He does have limited range of motion secondary to pain in his lower extremities. He also had C-spine CT scan that shows no acute fractures or traumatic subluxations, but there is multilevel broad based bulges at C2 to C3 through C6 and C7, also multilevel neural foraminal stenosis at C3 to C4 and C5 to C6 levels. Hospital Course Patient was admitted and seen by physical therapy and neurosurgery teams. Patient was given pain control medications. Based on the results of the CT scan the neurosurgery team felt like there was no need for surgical intervention at this time. They did recommend either corset or brace to help with alignment and help the wounds heal. The patient worked with physical therapy wearing this device as well as using front wheel walker. Patient was also treated for minor GERD symptoms. Patient was able to ambulate, tolerate a p.o. diet. Patient will be discharged home today after case management to set up home health needs in improved condition. See below for full list of discharge medications. Patient is given strict return precautions if he develops any worsening of his lower back pain or any numbness or tingling in his lower extremities. Home Meds Active Scripts Ondansetron Hcl* (Zofran*) 4 Mg Tablet, 4 MG PO Q6H PRN for NAUSEA AND OR VOMITING, #30 TAB Prov:ZACHARY MILLARD. 11/21/18 Famotidine* (Famotidine*) 20 Mg Tablet, 20 MG PO DAILY, #30 TAB 1 Refill Prov:ZACHARY MILLARD. 11/21/18 Follow-up Plan Please take your medications as prescribed, see her doctor in the clinic in the next 1 week and wear your brace as prescribed. Primary Care Provider Care Physician No Primary Time spent on discharge: > 30 minutes Pending Labs Laboratory Tests Test 11/21/18 05:26 White Blood Count 7.0 10^3/ul (4.8-10.8) Red Blood Count 3.83 10^6/ul (4.70-6.10) Hemoglobin 11.8 g/dl (14.0-18.0) Hematocrit 35.8 % (42.0-52.0) Mean Corpuscular Volume 93.5 fl (82.0-101.0) Mean Corpuscular Hemoglobin 30.8 pg (29.0-33.0) Mean Corpuscular Hemoglobin Concent 33.0 g/dl (32.0-37.0) Red Cell Distribution Width 12.0 % (11.5-14.5) Platelet Count 237 10^3/UL (140-415) Mean Platelet Volume 11.0 fl (7.4-10.4) Immature Granulocytes % 0.300 % (0.001-0.429) Neutrophils % 65.6 % (39.0-77.0) Lymphocytes % 26.0 % (15.0-51.0) Monocytes % 7.1 % (0.0-11.0) Eosinophils % 0.7 % (0.0-7.0) Basophils % 0.3 % (0.0-2.0) Nucleated Red Blood Cells % 0.0 /100WBC (0.0-0.0) Immature Granulocytes # 0.020 10^3/ul (0.0-0.031) Neutrophils # 4.6 10^3/ul (1.6-7.5) Lymphocytes # 1.8 10^3/ul (0.8-2.9) Monocytes # 0.5 10^3/ul (0.3-0.9) Eosinophils # 0.1 10^3/ul (0.0-0.5) Basophils # 0.0 10^3/ul (0.0-0.1) Nucleated Red Blood Cells # 0.0 10^3/ul (0.0-0.0) Sodium Level 141 mmol/L (135-144) Potassium Level 3.7 mmol/L (3.5-5.1) Chloride Level 107 mmol/L (97-110) Carbon Dioxide Level 25 mmol/L (21-31) Anion Gap 9 (5-13) Blood Urea Nitrogen 10 mg/dl (7-20) Creatinine 0.80 mg/dl (0.61-1.24) Est Glomerular Filtrat Rate mL/min > 60 mL/min (>60) Glucose Level 99 mg/dl (70-220) Calcium Level 9.0 mg/dl (8.4-10.2) ZACHARY MILLARD Nov 21, 2018 17:58
== END 2018-11-21 18:38 | disposition home health service (06) | DRG 552 ==
LOC: E/R 08:44 → 6WM 11:46 → SUATTDRO 12:41
PROVIDERS: ADMIT Internal Medicine; ATTEND Hospitalist
DX: S32.019A Unspecified fracture of first lumbar vertebra, initial encounter for closed fracture (principal); S06.0X1A Concussion with loss of consciousness of 30 minutes or less, initial encounter; S32.029A Unspecified fracture of second lumbar vertebra, initial encounter for closed fracture; S32.039A Unspecified fracture of third lumbar vertebra, initial encounter for closed fracture; S32.049A Unspecified fracture of fourth lumbar vertebra, initial encounter for closed fracture; W11.XXXA Fall on and from ladder, initial encounter; K21.9 Gastro-esophageal reflux disease without esophagitis
CPT/HCPCS: 70450; 71045; 71260; 72125; 72148; 73510; 74177; 80048; 80053; 80061; 81001; 82150; 82550; 82553; 83036; 83690; 83735; 84100; 84439; 84443; 84484; 85025; 85610; 85730; 92610; 93005; 96374; 96375; 96376; 97161; 97167; J1170; J2270; J2405; J2765; J7030; Q9967

== ENCOUNTER 2018-11-30 21:40 | Emergency (ER) | payer OTHER ==
[~2018-11-30] VITALS: Ht 175.3 cm; Wt 81.8 kg
[~2018-11-30 21:40] MED LIST: BACL10TA PO; FAMO20TA18 PO; HYDR2TAB36 PO; ONDA4TAB8 PO
[2018-11-30 21:51] VITALS: Ht 175.3 cm; Wt 81.8 kg
--- NOTE | 2018-12-01 00:18 | ERD ---
ER Documentation Chief Complaint Chief Complaint L chest wall pain after moving light object X 40 min ago HPI 53-year-old male who was just here for traumatic injury 2 weeks ago presents wi th complaint of rib pain since today. Stated that yesterday he sneezed and heard a crack in his ribs. Then today he moved an object and felt a tearing sensation in his rib cage. Pain is made worse with palpation. He has been taking Dilaudid as prescribed to him for his previous injury. Denies SOB, dyspnea, lower extremity swelling or pain, pain on exertion, diaphoresis, nause a, radiating of pain, recent travel or immobilization, hemoptysis, dsypnea, history of clotting disorder, syncope, fever, or cough. ROS All systems reviewed and are negative except as per history of present illness. Medications Home Meds Active Scripts Ondansetron Hcl* (Zofran*) 4 Mg Tablet, 4 MG PO Q6H PRN for NAUSEA AND OR VO MITING, #30 TAB Prov:ZACHARY MILLARD S. 11/21/18 Famotidine* (Famotidine*) 20 Mg Tablet, 20 MG PO DAILY, #30 TAB 1 Refill Prov:ZACHARY MILLARD S. 11/21/18 Hydromorphone Hcl* (Dilaudid*) 2 Mg Tablet, 2 MG PO Q4H PRN for SEVERE PAIN LEVEL 7-10, #30 TAB Prov:ZACHARY MILLARD S. 11/21/18 Baclofen* (Baclofen*) 10 Mg Tablet, 10 MG PO TID, #90 TAB Prov:ZACHARY MILLARD S. 11/21/18 Allergies Allergies: Coded Allergies: No Known Allergy (Unverified , 11/19/18) PMhx/Soc History of Surgery: No Anesthesia Reaction: No Hx Neurological Disorder: No Hx Respiratory Disorders: No Hx Cardiac Disorders: No Hx Psychiatric Problems: No Hx Miscellaneous Medical Probl: No Hx Alcohol Use: Yes (occasionally) Hx Substance Use: No Hx Tobacco Use: No FmHx Family History: No diabetes, No coronary disease, No other Physical Exam Vitals Vital Signs Date Temp Pulse Resp B/P (MAP) Pulse Ox O2 O2 Flow FiO2 Time Delivery Rate 11/30/18 99.5 85 18 141/84 100 21:51 (103) Physical Exam Const: No acute distress Head: Atraumatic Eyes: Normal Conjunctiva ENT: Normal External Ears, Nose and Mouth. Neck: Full range of motion. No meningismus. Resp: Clear to auscultation bilaterally. Tenderness to palpation over the left anterior chest wall. There is no bony deformity noted. Overlying skin is intact. Cardio: Regular rate and rhythm, no murmurs Abd: Soft, non tender, non distended. Normal bowel sounds Skin: No petechiae or rashes Back: No midline or flank tenderness Ext: No cyanosis, or edema Neur: Awake and alert Psych: Normal Mood and Affect Procedures/MDM EKG: Rate/Rhythm: Normal Sinus Rhythm QRS, ST, T-waves: No changes consistent w/ acute ischemia Impression: No evidence of ischemia or arrhythmia DIAGNOSTIC IMAGING REPORT Patient: JULIO CESAR AKHTAR : 1965 Age: 53 Sex: M MR #: [id number] DOS: 12/01/18 0014 Ordering MD: ROSE ALLAN Location: [facility] Room/Bed: PROCEDURE: XR Chest. CLINICAL INDICATION: Left chest trauma TECHNIQUE: Portable single view of the chest COMPARISON: 11/19/2018 FINDINGS: The cardiomediastinal silhouette appears within normal limits. The lungs are clear and no pleural effusion or significant edema is seen. Mild degenerative change of the spine. No pneumothorax is seen.. IMPRESSION: No significant interval change.. No definite acute abnormality. RPTAT: [facility] Physician Yeni Date Time Electronically viewed and signed by Sandra Rowland Physician on 12/01/2018 02:31 LE/ CC: ROSE ALLAN [phone] DIAGNOSTIC IMAGING REPORT Patient: JULIO CESAR AKHTAR : 1965 Age: 53 Sex: M MR #: [id number] DOS: 12/01/18 0014 Ordering MD: ROSE ALLAN Location: [facility] Room/Bed: PROCEDURE: XR Ribs. CLINICAL INDICATION: rib injury TECHNIQUE: Multiple oblique views of the left ribs were obtained. The images were reviewed on a PACS workstation. COMPARISON: None. FINDINGS: No definite fracture or pneumothorax is seen. No pleural effusion is seen. IMPRESSION: No definite fracture or pneumothorax.. Note should be made that hairline rib fractures may initially not be well seen. RPTAT: [facility]BE Sandra Rowland Physician Date Time Electronically viewed and signed by Sandra Rowland Physician on 12/01/2018 02:32 LE/ CC: ROSE ALLAN [phone] MDM: Patient's presentation is consistent with chest wall strain versus rib contusion. Patient may also have a hairline x-ray of the rib which was instructed later. X-rays were all within normal limits. I will suspicion for pneumothorax, flail chest or any other emergent condition. I also low suspicion for pulmonary embolism as patient has a very low as well as criteria. He is d enies lower extremity edema, erythema, recent surgeries, hemoptysis, dyspnea. EKG was within normal limits as well. Patient discharged with strict ER precautions. Patient advised to follow up with PMD. All questions answered at discharge. Departure Diagnosis: Primary Impression: Chest wall muscle strain Encounter type: initial encounter Qualified Codes: S29.011A - Strain of muscle and tendon of front wall of thorax, initial encounter Condition: Stable ROSE ALLAN December 01, 2018 00:18
[2018-12-01] MEDS ORDERED: IBUP-1542 PO (02:59)
[2018-12-01 03:18] VITALS: BP 109/71; PULSE 70; RESP 17
== END 2018-12-01 03:18 | disposition home or self-care (01) ==
LOC: FTE 21:40
DX: S29.011A Strain of muscle and tendon of front wall of thorax, initial encounter (principal); R07.89 Other chest pain; X50.9XXA Other and unspecified overexertion or strenuous movements or postures, initial encounter; Y92.9 Unspecified place or not applicable
CPT/HCPCS: 71045; 71100; 93005; Z7502